=== PATIENT | female | born 1990 | race Caucasian/White ===

== ENCOUNTER 2023-08-11 12:19 | Emergency (ER) | payer OTHER, SELFPAY ==
[2023-08-11] VITALS (8 sets, daily range): BP systolic 115–137; BP diastolic 73–86; PULSE 75–82; RESP 16–78; TEMP 36.7; O2SAT 99–100; BMI 25.1
[2023-08-11 13:03] LABS: Add Manual Diff / Slide Review NO; Basophils Absolute Auto 0 /uL (0-100); Basophils Percent Auto 0.2 % (0-2); Eosinophils Absolute Auto 100 /uL (0-450); Eosinophils Percent Auto 0.5 % (2-4); Hematocrit 40.3 % (36-46); Hemoglobin 13.7 g/dL (12.0-16.0); Lymphocytes Absolute Auto 2200 /uL (1100-4500); Lymphocytes Percent Auto 14.2 % (25-40); Mean Corpuscular HGB Conc 34.1 % (30-36); Mean Corpuscular Hemoglobin 29.8 PG (26-34); Mean Corpuscular Volume 87.6 fL (80-100); Monocytes Absolute Auto 800 /uL (0-900); Monocytes Percent Auto 5.3 % (3-14); Neutrophils Absolute Auto 12300 /uL (1500-7000); Neutrophils Percent Auto 79.8 % (50-75); Platelet Count 266 X10^3/uL (150-400); Red Cell Distribution Width 13.5 % (11.6-14.8); White Blood Cell Count 15.4 X10^3/uL (4.5-11.0)
[2023-08-11 13:09] LABS: Bacteria Urine Many (>30); Culture Indicated Urine Specimen Cultured; RBC Urine 1-5/HPF (0-5/HPF); Squamous Epithelial Cell Urine 5-10 /HPF (0-5/HPF); Urine Volume 10mL (spun); WBC Urine 1-5/HPF (0-5/HPF)
[2023-08-11 13:12] LABS: Alanine Aminotransferase 19 IU/L (<35); Albumin 4.5 g/dL (3.5-5.0); Albumin Globulin Ratio 1.2 (1.0-2.8); Alkaline Phosphatase 58 U/L (38-126); Aspartate Aminotransferase 21 IU/L (14-36); Bilirubin Total 0.5 mg/dL (0.2-1.3); Blood Urea Nitrogen 13 mg/dL (7-17); Calcium 9.3 mg/dL (8.4-10.2); Carbon Dioxide 24 mmol/L (22-32); Chloride 107 mmol/L (98-107); Estimated Glomerular Filt Rate > 60 mL/min (>60); Globulin 3.7 g/dL (1.7-4.1); Glucose 120 mg/dL (70-100); HEMOLYSIS < 15 (0-50); Lipase 43 U/L (23-300); Potassium 3.7 mmol/L (3.4-5.1); Sodium 137 mmol/L (137-145); Total Protein 8.2 g/dL (6.3-8.2)
--- NOTE | 2023-08-11 14:09 | DI.CT.S_ITS ---
PROCEDURE: CT ABDOMEN PELVIS W CON INDICATIONS: generalized abd pain TECHNIQUE: After the administration of intravenous contrast, axial sections acquired from the lung bases to the pubic symphysis. Coronal and sagittal reformats were performed. For radiation dose reduction, the following was used: automated exposure control, adjustment of mA and/or kV according to patient size. COMPARISON: None. FINDINGS: Image quality: Diagnostic. Lower Chest: No significant findings. ABDOMEN: Liver: No solid mass. Gallbladder: No radiopaque gallstones or wall thickening. Biliary ducts: No biliary dilation. Pancreas: No ductal dilation. Spleen: Size is within normal limits. Adrenal Glands: No adrenal nodules. Kidneys and Ureters: No hydronephrosis. No solid mass. No complex renal cystic lesion which requires follow up. Stomach and Bowel: Normal colonic caliber, without significant wall thickening. Few diverticula without evidence of acute diverticulitis. Peritoneum: No abnormal intraperitoneal fluid. No free air. Ventral Wall: No significant ventral hernia. Abdominal Nodes: No retroperitoneal or mesenteric adenopathy by size criteria. Vessels: Aorta and inferior vena cava are normal in size. PELVIS: Pelvic Organs: Ill-defined lesion posterior to the uterus measuring approximately 5.5 x 6.0 x 5.5 cm. Bowel directly abuts the lesion.. Bladder: No bladder wall thickening, accounting for underdistention. Pelvic Nodes: No enlarged lymph nodes. Miscellaneous: No inguinal hernias are seen. Bones: No aggressive osseous abnormality. IMPRESSION: Ill-defined lesion posterior to the uterus measuring up to 6 cm as above. Unclear if this is ovarian or adnexal in etiology. The bowel directly abuts the lesion. Malignancy is not excluded. Recommend dedicated pelvic ultrasound for further evaluation. Dictated by: Porfirio Katz M.D. on 08/11/2023 at 13:49 Approved by: Porfirio Katz M.D. on 08/11/2023 at 13:52
--- NOTE | 2023-08-11 14:11 | ED.ABDPAIN ---
HPI - Abdominal Pain General Chief Complaint: Abdominal Pain Stated Complaint: Lower Abd Pain Time Seen by Provider: 08/11/23 13:56 Source: patient Mode of arrival: Ambulatory History of Present Illness HPI narrative: This is a 32-year-old female with a history of ovarian cysts presenting with pelvic and diffuse abdominal pain. She has had this for 3 days. Noted the onset with intercourse 3 days ago, pain this is generalized, reports it was improving and then she had intercourse this morning causing increased pain. It hurts to move or cough. She has not felt faint she has not had fevers she has had some nausea early in the course of this pain but has not vomited. Her bowel habits have not significantly changed. She has not having urinary symptoms. The patient's last menstrual period was approximately 1 month ago, she recently discontinued oral contraceptives. Patient is accompanied by her boyfriend. They report monogamy and have no concerns regarding STI. Patient does not have a vaginal discharge. She has no history of gonorrhea Chlamydia or pelvic inflammatory disease. She has had no previous abdominal surgery, she is otherwise healthy. Related Data Allergies Allergy/AdvReac Type Severity Reaction Status Date / Time No Known Drug Allergies Allergy Verified 08/11/23 12:33 Patient History tobacco type: vaping alcohol intake frequency: a few times a week Substance Use Type: marijuana Exam Initial Vital Signs Initial Vital Signs: Vital Signs Temperature 98.1 F 08/11/23 12:33 Pulse Rate 82 08/11/23 12:33 Respiratory Rate 18 08/11/23 12:33 Blood Pressure 137/83 08/11/23 12:33 Pulse Oximetry 100 08/11/23 12:33 Oxygen Delivery Method Room Air 08/11/23 12:33 Const Other: Appears to be in no distress Resp Other: Normal respiratory effort Cardio Other: Heart sounds are normal heart rate is normal GI Other: Normal bowel sounds, soft, diffusely tender with guarding throughout more tender in the pelvis does not lateralize. Mild left CVAT Skin Other: Warm and dry Extrem Other: Alert and grossly normal Course Orders Ordered: ED Orders 08/11/23 12:44 Urine Culture Stat Urine Microscopic Stat 08/11/23 12:58 Complete Blood Count AUTO DIFF Stat Comprehensive Metabolic Panel Stat Lipase Stat 08/11/23 14:09 CT abdomen pelvis w con Stat 08/11/23 15:26 US pelvic complete Stat Hydromorphone HCl (Hydromorphone 0.5 Mg Inj) 0.5 mg IV PRN PRN PRN Reason: moderate pain Last Admin: 08/11/23 14:42 Dose: 0.5 mg Documented By: TRAV Ondansetron HCl (Ondansetron 4 Mg/2 Ml Inj) 4 mg IV NOW PRN PRN Reason: Nausea And Vomiting Ondansetron HCl (Ondansetron 4 Mg Odt) 4 mg PO NOW PRN PRN Reason: Nausea And Vomiting Vital Signs Vital signs: Vital Signs - 8 hr 08/11/23 12:33 08/11/23 14:47 08/11/23 15:00 Temperature 98.1 F Pulse Rate 82 82 Respiratory Rate 18 Blood Pressure 137/83 121/86 Pulse Oximetry 100 100 Oxygen Delivery Method Room Air 08/11/23 15:00 08/11/23 15:30 08/11/23 15:30 Temperature Pulse Rate 81 78 Respiratory Rate Blood Pressure 121/78 Pulse Oximetry 100 100 Oxygen Delivery Method Room Air 08/11/23 16:00 08/11/23 16:00 08/11/23 16:30 Temperature Pulse Rate 81 Respiratory Rate Blood Pressure 118/73 115/73 Pulse Oximetry 99 Oxygen Delivery Method 08/11/23 16:30 Temperature Pulse Rate 75 Respiratory Rate Blood Pressure Pulse Oximetry 99 Oxygen Delivery Method Room Air MDM - Abdominal Pain Lab Data 08/11/23 12:58 08/11/23 12:58 Labs: Lab Results 08/11/23 08/11/23 Range/Units 12:44 12:58 WBC 15.4 H (4.5-11.0) X10^3/uL RBC 4.60 (4.0-5.2) X10^6/uL Hgb 13.7 (12.0-16.0) g/dL Hct 40.3 (36-46) % MCV 87.6 (80-100) fL MCH 29.8 (26-34) PG MCHC 34.1 (30-36) % RDW 13.5 (11.6-14.8) % Plt Count 266 (150-400) X10^3/uL Neut % (Auto) 79.8 H (50-75) % Lymph % (Auto) 14.2 L (25-40) % [place] % (Auto) 5.3 (3-14) % Eos % (Auto) 0.5 L (2-4) % Baso % (Auto) 0.2 (0-2) % Neut # (Auto) 23249 H (3064-0999) /uL Lymph # (Auto) 2200 (7991-3727) /uL [place] # (Auto) 800 (0-900) /uL Eos # (Auto) 100 (0-450) /uL Baso # (Auto) 0 (0-100) /uL Sodium 137 (137-145) mmol/L Potassium 3.7 (3.4-5.1) mmol/L Chloride 107 (98-107) mmol/L Carbon Dioxide 24 (22-32) mmol/L BUN 13 (7-17) mg/dL Creatinine 1.00 (0.52-1.04) mg/dL Estimated GFR > 60 (>60) mL/min BUN/Creatinine Ratio 13.0 (6-22) Glucose 120 H (70-100) mg/dL Calcium 9.3 (8.4-10.2) mg/dL Total Bilirubin 0.5 (0.2-1.3) mg/dL AST 21 (14-36) IU/L ALT 19 (<35) IU/L Alkaline Phosphatase 58 (38-126) U/L Total Protein 8.2 (6.3-8.2) g/dL Albumin 4.5 (3.5-5.0) g/dL Globulin 3.7 (1.7-4.1) g/dL Albumin/Globulin Ratio 1.2 (1.0-2.8) Lipase 43 (23-300) U/L Urine RBC 1-5/hpf (0-5/HPF) Urine WBC 1-5/hpf (0-5/HPF) Ur Squamous Epith Cells 5-10 /hpf H (0-5/HPF) Urine Bacteria Many (>30) H (None) Ur Culture Indicated? Specimen cultured Vol Urine Centrifuged 10ml (spun) Point of care testing: Point of Care Testing Test Results Negative Urine Dip Bedside Urine Glucose Negative Bedside Urine Bilirubin - Negative Bedside Urine Ketone - Negative Urine Specific [place] 1.015 Bedside Urine Occult Blood - Negative Bedside Urine pH 6.0 Bedside Urine Protein - Negative Bedside Urine Urobilinogen - Negative Bedside Urine Nitrite + Positive Bedside Urine Leukocytes - Negative Esterase Imaging Data CT scan - abdomen/pelvis: Radiologist's Impression: [address] [address] [address] Scan Report Signed Patient: Ruma Brewer MR#: [id number] : 1990 Acct:[id number] Age/Sex: 32 / F Date of Service: 08/11/23 Loc: ED Accession Number: [id number] Procedure: CT abdomen pelvis w con Ordering Provider: Timi Troy MD PROCEDURE: CT ABDOMEN PELVIS W CON INDICATIONS: generalized abd pain TECHNIQUE: After the administration of intravenous contrast, axial sections acquired from the lung bases to the pubic symphysis. Coronal and sagittal reformats were performed. For radiation dose reduction, the following was used: automated exposure control, adjustment of mA and/or kV according to patient size. COMPARISON: None. FINDINGS: Image quality: Diagnostic. Lower Chest: No significant findings. ABDOMEN: Liver: No solid mass. Gallbladder: No radiopaque gallstones or wall thickening. Biliary ducts: No biliary dilation. Pancreas: No ductal dilation. Spleen: Size is within normal limits. Adrenal Glands: No adrenal nodules. Kidneys and Ureters: No hydronephrosis. No solid mass. No complex renal cystic lesion which requires follow up. Stomach and Bowel: Normal colonic caliber, without significant wall thickening. Few diverticula without evidence of acute diverticulitis. Peritoneum: No abnormal intraperitoneal fluid. No free air. Ventral Wall: No significant ventral hernia. Abdominal Nodes: No retroperitoneal or mesenteric adenopathy by size criteria. Vessels: Aorta and inferior vena cava are normal in size. PELVIS: Pelvic Organs: Ill-defined lesion posterior to the uterus measuring approximately 5.5 x 6.0 x 5.5 cm. Bowel directly abuts the lesion.. Bladder: No bladder wall thickening, accounting for underdistention. Pelvic Nodes: No enlarged lymph nodes. Miscellaneous: No inguinal hernias are seen. Bones: No aggressive osseous abnormality. IMPRESSION: Ill-defined lesion posterior to the uterus measuring up to 6 cm as above. Unclear if this is ovarian or adnexal in etiology. The bowel directly abuts the lesion. Malignancy is not excluded. Recommend dedicated pelvic ultrasound for further evaluation. Dictated by: Porfirio Katz M.D. on 08/11/2023 at 13:49 Approved by: Porfirio Katz M.D. on 08/11/2023 at 13:52 US - PLASTER BLOCK LAYER: Radiologist's Impression: Preliminary report by environmental health technologist, collapsing left ovarian cyst, approximately 50 cc of blood in the cul-de-sac. Uterus normal. MDM Narrative Medical decision making narrative: 32-year-old female presenting with pelvic and generalized abdominal pain. Association with intercourse and initial sensation in the pelvis lead me to believe this most likely gynecologic. I considered pelvic inflammatory disease or STI, the patient does not have risk factors for this and exam does not suggest it. Also considered appendicitis diverticulitis or other abdominal surgical process, not supported by imaging. Ultrasound shows ovarian cyst with a small amount of hemorrhage. Patient was stable, declined opiate analgesia prior to discharge. She is referred to Gynecology for follow-up. Discharge Plan Departure Patient Disposition: Home Clinical Impression: Pelvic pain, Hemorrhagic cyst of left ovary Activity Restrictions/Additional Instructions: Emergency department evaluation today is reassuring. It appears that you have had a small bleeding cyst from your left ovary. I expect that this should resolve with time and not require any specific treatment. You may want to refrain from intercourse for the next few days to prevent exacerbations of pain. Follow up with Gynecology, if you are having increasing pain fevers vomiting or other acute symptoms return to the emergency department. May use ibuprofen: Ibuprofen (motrin or advil) should be dosed at 600mg (3 non-prescription tablets) every 6 hours. Taking this on a scheduled basis is more effective. It is a good idea to take this with food. Use this with caution if you have a history of bleeding ulcers or renal disease. Acetaminophen (tylenol) should be dosed at 650 mg every 4 hours or 1000mg every 6 hours. It can be given as needed but is more effective if given on a scheduled basis. Total daily dose should not exceed 4,000mg. If you were prescribed norco (hydrocodone/apap) or percocet (oxycodone/apap) each tablet of these contains 325 mg of acetaminophen and should be included when calculating daily dose Referrals: Lillian Marina ARNP [Primary Care Provider] - Chastity Becerril MD [Physician] - Stand Alone Forms: Patient Portal/API
[2023-08-11] MEDS: HYDROMORPHONE 0.5 MG INJ IV ×2 (14:42→15:34)
--- NOTE | 2023-08-11 15:26 | DI.US.S_ITS ---
PROCEDURE: US PELVIC COMPLETE INDICATIONS: pelvic pain, not TECHNIQUE: Real-time scanning was performed of the pelvic organs, with image documentation. Additional endovaginal scanning was necessary due to incomplete visualization of the adnexal and endometrial structures by transabdominal scanning. COMPARISON: [facility], CT, CT ABDOMEN PELVIS W CON, 08/11/2023, 14:17. FINDINGS: Uterus: Uterus is anteverted and normal in size at 7.3 x 3.8 x 4 point cm. The myometrium is homogeneous. The endometrium measures 11.5 mm combined thickness. Ovaries: The right ovary measures 1.9 x 3.0 x 2.2 cm, with a calculated ovarian volume of 6.6 cc. The left ovary measures 4.4 x 3.2 x 3.0 cm, with a calculated ovarian volume of 22 cc. Mass versus collapsing hemorrhagic cyst measuring 1.6 x 2.2 x 1.0 cm. The ovaries otherwise have a normal sonographic appearance. Less than 12 follicles can be seen in each ovary. No adnexal masses are seen. Other: In the posterior cul-de-sac, there is a 7.8 x 2.1 x 5.9 cm (52 mm) heterogeneous and mildly echogenic region, possibly representing blood product. IMPRESSION: Heterogeneous area in the posterior cul-de-sac measuring up to 7.8 cm, possibly representing a hematoma from hemorrhagic cyst rupture. Consider gynecology consultation. Recommend follow-up ultrasound to assess resolution. Collapsing hemorrhagic cyst versus mass in the left ovary measuring 2.2 cm. Attention on follow-up ultrasound. We strive to produce accurate, complete, and clear reports of imaging services. To assist us in improving patient care, this report was composed using standard report templates and voice recognition software. Therefore, it may contain abnormal punctuation, insertions and/or omissions. Occasional wrong-word or sound-alike substitutions may occur. Though we review the report and make efforts to correct it, we do recommend that the report be read carefully in proper context to recognize any text inaccuracies. Dictated by: Porfirio Katz M.D. on 08/11/2023 at 16:18 Approved by: Porfirio Katz M.D. on 08/11/2023 at 16:21
== END 2023-08-11 17:20 | disposition home or self-care (01) ==
PROVIDERS: Emergency Medicine; Emergency Provider Emergency Medicine; PCP Nurse Practitioner
DX: N83.202 Unspecified ovarian cyst, left side (principal); R10.2 Pelvic and perineal pain
CPT/HCPCS: 36415; 74177; 76856; 80053; 81003; 81015; 81025; 83690; 85025; 87077; 87086; 87186; 96374; 99284; J1170; Q9967

== ENCOUNTER → 2024-05-16 11:10 | Outpatient (CLI) | payer OTHER, SELFPAY ==
--- NOTE | 2024-05-16 11:11 | DI.MRI.S_ITS ---
PROCEDURE: MR LUMBAR SPINE WO CON INDICATIONS: LOWER BACK/LUMBAR PAIN/RT LEG WEAKNESS AND NUMBNES TECHNIQUE: Noncontrast sagittal T1 spin echo and T2 fast echo, sagittal STIR, and T2 fast spin echo through the lumbar spine. In cases with scoliosis, additional coronal T2 fast spin echo may be performed. COMPARISON: None. FINDINGS: Image quality: Excellent. Alignment and Curvature: There is normal bony alignment. Bone Marrow: Marrow is of normal overall signal. No acute vertebral body compression fractures. Spinal Cord: Conus medullaris terminates at the L1 level. Visualized cord demonstrates normal signal and size. Paraspinous Soft Tissues: No paravertebral masses. T12-L1: Normal appearance. L1-L2: Normal appearance. L2-L3: Normal appearance. L3-L4: Normal appearance. L4-L5: Mild facet arthropathy. No central canal or neural foraminal stenosis. L5-S1: Mild facet arthropathy. No central canal or neural foraminal stenosis. IMPRESSION: Mild degenerative changes of the lower lumbar spine. No central canal or neural foraminal stenosis. Dictated by: Porfirio Katz M.D. on 05/18/2024 at 9:03 Approved by: Porfirio Katz M.D. on 05/18/2024 at 9:06
== END ==
PROVIDERS: Referring Provider Chiropractor; Visit Provider Chiropractor
DX: M47.26 Other spondylosis with radiculopathy, lumbar region (principal); M47.27 Other spondylosis with radiculopathy, lumbosacral region; M54.51 Vertebrogenic low back pain; M99.13 Subluxation complex (vertebral) of lumbar region
CPT/HCPCS: 72148